=== PATIENT | male | born 1965 | race African-American/Black ===

== ENCOUNTER 2019-03-30 13:58 | Emergency (ER) | payer MEDICARE ==
[~2019-03-30] VITALS: Ht 170.2 cm; Wt 105.9 kg
[2019-03-30 14:00] VITALS: Ht 170.2 cm; Wt 105.9 kg
[2019-03-30] MEDS ORDERED: ABILIFY10 MG PO (14:09)
[2019-03-30] MEDS ORDERED: NORVASC5 MG PO (14:09)
[2019-03-30] MEDS ORDERED: PROTONIX40 MG PO (14:10)
[2019-03-30] MEDS ORDERED: TRAZODONE HCL150 MG PO (14:10)
[2019-03-30] MEDS ORDERED: PROPRANOLOL HCL20 MG PO (14:11)
[2019-03-30 15:02] LABS: BASOPHILS 0.4 % (0-2); EOSINOPHILS 4.1 % (0-7); HEMATOCRIT 37.4 % (42.0-54.0); HEMOGLOBIN 12.1 g/dL (13.5-17.5); IMMATURE GRANULOCYTES 0.1 % (0-5); LYMPHOCYTES 32.2 % (15-50); MCH 27.5 pg (26.0-34.0); MCHC 32.4 g/dL (31.0-37.0); MEAN PLATELET VOLUME 10.1 fL (7.4-10.4); MONOCYTES 9.9 % (2-11); NEUTROPHILS 53.3 % (40-80); PLATELET COUNT 209 10x3/uL (130-400); RDW 15.3 % (11.5-14.5); WBC 8.2 10x3/uL (4.8-10.8)
[2019-03-30 15:04] LABS: APTT 27.9 SECONDS (22.8-39.4); INR 1.04 (0.85-1.17); PROTIME 13.1 SECONDS (11.6-15.0)
[2019-03-30 15:11] LABS: ALBUMIN 3.5 g/dL (3.4-5.0); ALKALINE PHOSPHATASE 83 U/L (46-116); ALT (SGPT) 25 U/L (10-68); BILIRUBIN - TOTAL 0.22 mg/dL (0.2-1.3); CALC OSMOLALITY 279 mosm/kg (275-300); CALCIUM 9.1 mg/dL (8.5-10.1); CARBON DIOXIDE 28.8 mmol/L (21.0-32.0); CHLORIDE - SERUM 104 mmol/L (98-107); CREATININE - SERUM 1.3 mg/dL (0.6-1.3); GLUCOSE 108 mg/dL (74-106); POTASSIUM - SERUM 3.8 mmol/L (3.5-5.1); PROTEIN - SERUM 7.7 g/dL (6.4-8.2); SODIUM 139 mmol/L (136-145); UREA NITROGEN 16 mg/dL (7-18); eGFR NON AFRICAN AMERICAN 61 mL/min (90-120)
[2019-03-30 15:28] LABS: CKMB 0.8 U/L (0.0-3.6); CREATINE KINASE 188 UL (21-232); MAGNESIUM - SERUM 2.2 mg/dL (1.8-2.4)
[2019-03-30 15:32] LABS: TROPONIN-I 0.112 ng/mL (0.000-0.060)
[2019-03-30 16:04] VITALS: BP 127/74
== END 2019-03-30 15:46 | disposition left against medical advice (07) ==
LOC: D.ER 13:58
PROVIDERS: Family Medicine
DX: R07.9 Chest pain, unspecified (principal); Z91.19 Patient's noncompliance with other medical treatment and regimen

== ENCOUNTER 2019-03-31 14:43 | Emergency (ER) | payer MEDICARE ==
[~2019-03-31] VITALS: Ht 170.2 cm; Wt 97.7 kg
[~2019-03-31 14:43] MED LIST: ABILIFY10 MG PO; NORVASC5 MG PO; PROPRANOLOL HCL20 MG PO; PROTONIX40 MG PO; TRAZODONE HCL150 MG PO
[2019-03-31 14:47] VITALS: Ht 170.2 cm; Wt 97.7 kg
[2019-03-31 15:21] LABS: UDS - AMPHET POSITIVE QUAL (NEGATIVE); UDS - BARB NEGATIVE QUAL (NEGATIVE); UDS - BENZO NEGATIVE QUAL (NEGATIVE); UDS - COCAINE POSITIVE QUAL (NEGATIVE); UDS - OPIATE NEGATIVE QUAL (NEGATIVE); UDS - PCP NEGATIVE QUAL (NEGATIVE); UDS - THC NEGATIVE QUAL (NEGATIVE)
[2019-03-31 15:22] LABS: BASOPHILS 0.3 % (0-2); HEMATOCRIT 36.8 % (42.0-54.0); HEMOGLOBIN 11.9 g/dL (13.5-17.5); IMMATURE GRANULOCYTES 0.1 % (0-5); LYMPHOCYTES 31.8 % (15-50); MCH 27.5 pg (26.0-34.0); MCHC 32.3 g/dL (31.0-37.0); MEAN PLATELET VOLUME 9.8 fL (7.4-10.4); MONOCYTES 8.9 % (2-11); NEUTROPHILS 55.9 % (40-80); PLATELET COUNT 208 10x3/uL (130-400); RBC 4.33 10x6/uL (4.20-6.10); RDW 15.3 % (11.5-14.5); WBC 6.7 10x3/uL (4.8-10.8)
[2019-03-31 15:31] LABS: APPEARANCE CLEAR (CLEAR); BILIRUBIN NEGATIVE (NEGATIVE); COLOR STRAW (YELLOW); GLUCOSE NEGATIVE (NEGATIVE); KETONE NEGATIVE (NEGATIVE); NITRITE NEGATIVE (NEGATIVE); PROTEIN TRACE mg/dL (NEGATIVE); SPECIFIC GRAVITY 1.015 (1.005-1.020); UROBILINOGEN NORMAL (NORMAL)
[2019-03-31 15:39] LABS: ALBUMIN 3.4 g/dL (3.4-5.0); ANION GAP 11.6 mmol/L (8-16); BILIRUBIN - TOTAL 0.25 mg/dL (0.2-1.3); CALCIUM 8.9 mg/dL (8.5-10.1); CARBON DIOXIDE 27.4 mmol/L (21.0-32.0); CREATININE - SERUM 1.1 mg/dL (0.6-1.3); MAGNESIUM - SERUM 1.9 mg/dL (1.8-2.4); PROTEIN - SERUM 7.5 g/dL (6.4-8.2)
--- NOTE | 2019-03-31 15:46 | NUR ---
D/T THE SUICIDE ASSESSMENT SCORE, AND DR. GOLDSMITH HE RATES A MODERATE SUICIDE RISK AND REQUIRES A 1:1 SUICIDE WATCH.
[2019-04-01 06:17] VITALS: BP 156/84
[2019-04-01] MEDS ORDERED: KLONOPIN1 MG PO (06:30)
[2019-04-01] MEDS ORDERED: ULTRAM50 MG PO (06:31)
== END 2019-04-01 07:27 ==
LOC: D.ER 14:43
PROVIDERS: Family Medicine
DX: R45.851 Suicidal ideations (principal); F15.10 Other stimulant abuse, uncomplicated